=== PATIENT | male | born 1930 | race Caucasian/White ===

== ENCOUNTER 2016-05-14 14:10 | Outpatient (CLI) | payer MEDICARE, OTHER ==
[2014-01-11 22:10] VITALS: BP 134/78
--- NOTE | 2016-05-15 06:14 | Diagnostic Imaging Report ---
Report Submission Date: May 14, 2016 11:45:43 PM POLICY WRITER Patient ~ Study Name: CLAUS GEORGE ~ Date: May 14, 2016 2:24:33 PM POLICY WRITER ~ Modality Type: CR Gender: M ~ Description: CHEST : 30 ~ Institution: [facility] Physician: LUIS MASON ~ ~ ~ ~ Chest - two views Clinical history: ~Cough and shortness of breath for two weeks. Findings: ~Examination of the chest in PA and lateral views with comparison to examination of 05/21/2013 demonstrates minimal discoid atelectasis in the lung bases. ~The lungs are hyperinflated. ~Cardiac silhouette is enlarged and the aorta is atherosclerotic. ~Bony thorax is intact. Impression: 1. ~Hyperinflation. 2. ~Cardiomegaly and aortic atherosclerosis. 3. 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 ~ Electronically signed on May 14, 2016 11:45:43 PM POLICY WRITER by: Sudarshan WU
== END 2016-05-14 14:11 ==
LOC: RAD 14:10
PROVIDERS: ATTEND Nurse Practitioner Family
DX: R05 Cough (principal); R06.02 Shortness of breath
CPT/HCPCS: 71020

== ENCOUNTER 2016-11-07 10:33 | Emergency (ER) | payer MEDICARE, OTHER ==
[2016-11-07 11:12] VITALS: BP 152/77
--- NOTE | 2016-11-07 11:21 | ED Physician Documentation ---
General Adult - HISTORIAN Historian: patient, child (son) - HPI Stated Complaint: urinary retension after taking catheter out Chief Complaint: General Adult Additional Information: Awake since 89 with discomfort because he could only urinate in small amounts. Had TURP 11/[address] Gupta. Catheter said to be bothering him on , so son cut the catheter and removed it. To be seen by Dr. Gupta 11/10. - ROS CONST: no problems - PAST HX Past History: none Surgeries/Procedures: other (TURP) Allergies/Adverse Reactions: Allergies Allergy/AdvReac Type Severity Reaction Status Date / Time Penicillins Allergy Unknown Verified 11/07/16 11:14 Home Medications: Ambulatory Orders Medication Instructions Recorded Sulfamethoxazole/Trimethoprim 1 each PO BID #14 tablet 01/10/14 [Bactrim DS] Tamsulosin HCl [Flomax] 0.4 mg PO [id number] #30 cap.er.24h 01/10/14 Polyethylene Glycol 3350 [Miralax] 17 gm PO 1100 #10 powd.pack 01/11/14 - SOCIAL HX Smoking History: non-smoker - FAMILY HX Family History: No - VITAL SIGNS Vital Signs: Vital Signs Temp Pulse Resp BP Pulse Ox 98.2 F 68 16 152/77 97 11/07/16 10:35 11/07/16 10:35 11/07/16 10:35 11/07/16 10:35 11/07/16 10:35 - REVIEWED ASSESSMENTS Nursing Assessment Reviewed: Yes Vitals Reviewed: Yes Progress - Progress Progress: 12 Fr Reid cath placed per RN, with drainage 300 cc clear yellow urine. ED Results Lab/Radiology - Orders Orders: ED Orders Category Date Time Status Reid [Urinary catheterization] 1T Care 11/07/16 10:50 Active General Adult Physical Exam - PHYSICAL EXAM GENERAL APPEARANCE: no distress EENT: eye inspection normal NECK: supple RESPIRATORY: no resp distress ABDOMEN: soft, no distension, non-tender SKIN: warm/dry, normal color EXTREMITIES: no evidence of injury NEURO: CN's nml as tested, motor nml, sensation nml, cognition normal Discharge Clincal Impression: Postoperative urinary retention Referrals: Jj Asher MD [Primary Care Provider] - 2 Days Additional Instructions: Keep your appointment with Dr. Gupta. Leave the catheter in place until then. Home Medications: Ambulatory Orders Sulfamethoxazole/Trimethoprim [Bactrim DS] 1 each PO BID #14 tablet 01/10/14 Tamsulosin HCl [Flomax] 0.4 mg PO [id number] #30 cap.er.24h 01/10/14 Polyethylene Glycol 3350 [Miralax] 17 gm PO 1100 #10 powd.pack 01/11/14 Condition: Good Disposition: 01 HOME, SELF-CARE Decision to Admit: NO Decision Time: 11:22
== END 2016-11-07 11:56 | disposition home or self-care (01) ==
LOC: ED 10:33
DX: R33.8 Other retention of urine (principal)
CPT/HCPCS: 99283

== ENCOUNTER 2017-10-14 02:57 | Emergency (ER) | payer MEDICARE, OTHER ==
[2017-10-14] MEDS ORDERED: LIDOCAINE Urojet 5 ML JEL MM ONE ×2 (03:14→03:30)
[2017-10-14] MEDS ORDERED: fentaNYL CITRATE/PF 100 MCG/ 2ML AMP IVP ONE (03:20)
[2017-10-14] MEDS ORDERED: fentaNYL CITRATE/PF 100 MCG/ 2ML AMP ONE (03:21)
--- NOTE | 2017-10-14 03:39 | ED Physician Documentation ---
Male Genitourinary Problems - HISTORIAN Historian: patient - HPI Chief Complaint: Male Genitourinary Problems Onset: hours (14) Duration: continues in ED Severity: severe Further Comments: yes (87 year old male patient presents with inability to void. Patient pulled out his catheter 14 hours ago without de-flating the balloon. Has not voided since. Had TURP at [facility] on 10/11/17. Scheduled to see Dr Gupta tomorrow.) - Associated Symptoms Problems Urinating: other (unable to void) Penile Discharge Descripiton: other (bloody) Abdominal Pain: suprapubic (cramping) - Sexual History Sexual History: non-contributory - ROS CONST: none MS/SKIN/LYMPH: none CVS/RESP: none EYES/ENT: none NEURO/PSYCH: denies: fainting - PAST HX Past History: enlarged prostate Surgeries/Procedures: TURP (x2; last 10/11/17) Allergies/Adverse Reactions: Allergies Allergy/AdvReac Type Severity Reaction Status Date / Time Penicillins Allergy Unknown Verified 10/14/17 03:54 Home Medications: Ambulatory Orders Medication Instructions Recorded Ciprofloxacin HCl [Cipro] 500 mg PO BID #14 tablet 10/14/17 Cyanocobalamin (Vitamin B-12) 1,000 mcg PO DAILY 10/14/17 [Vitamin B-12] Docusate Sodium [Colace] 100 mg PO BID PRN 10/14/17 Hydrocodone/Acetaminophen [[place] 1 tab PO Q4-6 PRN 10/14/17 5-325 Tablet] Levothyroxine Sodium 88 mcg PO DAILY 10/14/17 - SOCIAL HX Smoking History: non-smoker - FAMILY HX Family History: denies: none - VITAL SIGNS Vital Signs: Vital Signs Temp Pulse Resp BP Pulse Ox 98.1 F 69 16 137/61 95 10/14/17 06:34 10/14/17 06:34 10/14/17 06:34 10/14/17 06:34 10/14/17 06:34 - REVIEWED ASSESSMENTS Nursing Assessment Reviewed: Yes Vitals Reviewed: Yes Progress - Progress Progress: RN unable to pass 20F or 18 F; increased bleeding. No coude catheter available at this time. Patient c/o severe discomfort and cramping. Fentanyl 50mcg IV given. Using sterile technique; attempted to pass 20 F unsuccessfully; able to pass 16F , yellow urine return. Bleeding improving. Will monitor in Er and discharge home if stable. Catheter drained 650 cc yellow urine. No bladder scanner available. No clots in urine 0430 Reid will clear blood tinged urine; draining well. ED Results Lab/Radiology - Lab Results Lab Results: Lab Results 10/14/17 03:50 Urine Color Nidia (YELLOW) Urine Appearance Clear (CLEAR) Urine pH 5.5 (5.0 - 8.0) Ur Specific [place] >=1.030 H (1.010-1.030) Urine Protein 3+ mg/dL H mg/dL (NEGATIVE) Urine Ketones Trace mg/dL H mg/dL (NEGATIVE) Urine Occult Blood 3+ H (NEGATIVE) Urine Nitrite Positive H (NEGATIVE) Urine Bilirubin 2+ H (NEGATIVE) Urine Urobilinogen 1.0 Eu Eu (0.2-1.0) Ur Leukocyte Esterase 3+ H (NEGATIVE) Urine Glucose Negative mg/dL mg/dL (NEGATIVE) - Orders Orders: ED Orders Category Date Time Status Reid [Urinary catheterization] 1T Care 10/14/17 03:15 Active UA MACRO DIP ONLY Routine Lab 10/14/17 03:50 Completed URINE CULTURE Routine Lab 10/14/17 03:50 Completed LIDOCAINE Urojet [Xylocaine] Med 10/14/17 03:14 Discontinued 5 ml MM .STK-MED ONE LIDOCAINE Urojet [Xylocaine] Med 10/14/17 03:30 Discontinued 5 ml MM NOW ONE fentaNYL CITRATE/PF [Duragesic] Med 10/14/17 03:21 Discontinued 100 mcg .ROUTE .STK-MED ONE fentaNYL CITRATE/PF [Duragesic] Med 10/14/17 03:20 Discontinued 50 mcg IVP NOW ONE Male Genitourinary Problems - EXAM General Appearance: severe distress Abdomen: tenderness (suprapubic) Genitals: other (Hypospadis; Penis with significant edema; ecchymosis noted on scrotum; riri bleeding from penis) Respiratory: no resp distress CVS: reg rate & rhythm, heart sounds normal, equal pulses, no murmur, no gallop , PMI nml, no JVD, no friction rub, 24 Neuro/Psych: oriented X3, CN's nml as tested, motor nml, sensation nml, mood/ affect nml Skin: normal color, warm/dry, NR, INT, PAL, DR Discharge Clincal Impression: Acute urinary retention, S/P TURP (status post transurethral resection of prostate) UTI (urinary tract infection) Qualifiers: Urinary tract infection type: acute cystitis Hematuria presence: with hematuria Qualified Code(s): N30.01 - Acute cystitis with hematuria Prescriptions: Ciprofloxacin HCl [Cipro] 500 mg PO BID #14 tablet Referrals: Jj Asher MD [Primary Care Provider] - 2 Days Additional Instructions: Call Dr Gupta's office in the morning for follow up DO NOT REMOVE THE CATHETER YOURSELF 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 Call Dr Gupta or return to the Er if the catheter stops draining, you have significant bleeding or pain from the catheter or penis Condition: Stable Disposition: 01 HOME, SELF-CARE Decision to Admit: NO Decision Time: 04:45
[2017-10-14 06:36] VITALS: BP 137/61
[2017-10-15 06:13] LABS: APPEARANCE,URINE CLEAR (CLEAR); COLOR,URINE AMBER (YELLOW); OCCULT BLOOD,URINE 3+ (NEGATIVE); PH URINE 5.5 (5.0 - 8.0)
== END 2017-10-14 05:10 | disposition home or self-care (01) ==
LOC: ED 02:57
DX: N30.01 Acute cystitis with hematuria (principal); R33.9 Retention of urine, unspecified; Z90.79 Acquired absence of other genital organ(s)
CPT/HCPCS: 51702; 81002; 87086; J3010; 96374; 99284